=== PATIENT | female | born 1965 | race Caucasian/White ===

== ENCOUNTER → 2016-02-11 | Outpatient (CLI) | payer BC, OTHER ==
[~2016-02-11] VITALS: Ht 165.1 cm; Wt 86.2 kg
[~2016-02-11] MED LIST: ALLEGRA30 MG PO; COZAAR100 MG PO; DOXYCYCLINE 10100 M1 PO; HYDROCHLOROTH12.5 M1 PO; HYDROCODONE-AP1 EA11 PO; HYZAAR 100-12.1 EACH PO; IBUPROFEN 200200 M1 PO; LOESTRIN 24 FE1 EACH PO; MICROGESTIN FE1 EACH PO; MOBIC15 MG PO; PERCOCET 5-3251 EACH PO; PROVIGIL 200 M200 M1 PO; ZOLOFT50 MG PO; [UNRECOGNIZED DRUG - OTHER] PO
--- NOTE | ~2016-02-11 | HPC ---
[facility] [place] [address] PAIN MANAGEMENT CONSULTATION Name: COCOTRAVIS Hooker Room #: REG JERALD Maria#: [id number] Admission: 02/11/16 Attend Phys: Zeyad Hannah DO Discharge: Date of : 67 Report #: [id number] THIS REPORT FOR: //name// CC: Alfa Hannah The patient is a very pleasant 51-year-old female being seen for symptomatic lumbar radiculopathy. She had a midline lumbar epidural injection L4-L5 with nominal improvement of symptoms at last visit (01/21/2016). We ordered MRI of the lumbar spine and talked about proceeding with a transforaminal epidural injection. Returns to pain clinic today noting pain continues in the left posterior thigh and leg, exacerbated with standing and walking, worse with neural tensioning on the left side. MRI from 02/03/2016 was reviewed, noting at L5-S1, mild bulging with marked facet degenerative changes, ligamentum flavum hypertrophy. There is some abnormal signal seen in the left lateral recess along the inferior L5-S1 (left) facet adjacent to the origin of the left S1 nerve root. The exact etiology is somewhat obscure, though note is made that it could be an extruded disk fragment measuring up to 1 cm transversely or a complex synovial cyst and/or even a bony spur. Process deforms the left thecal sac with the central canal narrowed to 1 cm. This corresponds to left L5 radicular pain. Subjective pain score 3/10 are present, worse with standing, walking, and bending. She notes pain does significantly interfere with function and she has attenuated her daily activities. PHYSICAL EXAMINATION: Shows 51-year-old female, BMI is 31.6 kilograms per meter squared. Blood pressure 134/79, pulse 82, respirations 16. Rises from chair using armrest, modestly antalgic gait. Grossly positive straight leg raise on the left with decreased plantar flexion strength. Left Achilles reflex is diminished compared to the right. ASSESSMENT: Symptomatic lumbar radiculopathy. RECOMMENDATIONS: 1. We will seek authorization for left L5-S1 transforaminal epidural injection at next visit. 2. We will refer to Dr. Naif Olea for consideration for definitive intervention if interventional therapy does not afford improved relief. 3. Continue nonsteroidal anti-inflammatory medication (Meloxicam 15 mg) one a day. <ELECTRONICALLY SIGNED> By: Zeyad Hannah DO 02/17/16 1031 [id number] Zeyad Hannah DO /nt
[2016-02-11 14:48] VITALS: BP 134/79
== END ==
LOC: PAIN 07:34
DX: M54.16 Radiculopathy, lumbar region (principal); I10 Essential (primary) hypertension

== ENCOUNTER → 2020-02-21 | Outpatient (CLI) | payer OTHER | LOC: CAT 10:15 | PROVIDERS: ATTEND Orthopaedic Surgery Foot and Ankle Surgery | DX: M19.071 Primary osteoarthritis, right ankle and foot (principal) ==

== ENCOUNTER → 2020-03-10 | Outpatient (CLI) | payer OTHER ==
[~2020-03-10] MED LIST changes: +ALLEGRA ALLERGY60 MG PO; +BACTRIM DS TAB1 EACH PO; +DOXYCYCLINE 10100 M2 PO; +LARIN FE 1.5-31 EACH PO
== END ==
LOC: LAB 08:04
PROVIDERS: ATTEND Orthopaedic Surgery Foot and Ankle Surgery
DX: Z01.812 Encounter for preprocedural laboratory examination (principal); Z20.822 Contact with and (suspected) exposure to COVID-19

== ENCOUNTER 2020-03-13 06:04 | Day surgery (SDC) | payer OTHER ==
[~2020-03-13] VITALS: Ht 165.1 cm; Wt 86.6 kg
[2020-03-13 07:18] VITALS: BP 167/91
[2020-03-13] MEDS ORDERED: PERCOCET 7.5-31 EAC1 PO (09:09)
[2020-03-13] MEDS ORDERED: ECOTRIN325 MG PO (09:10)
[2020-03-13 09:29] VITALS: BP 167/91
--- NOTE | 2020-03-16 12:09 | O ---
[facility] [place] [address] OPERATIVE REPORT Name: TRAVIS SEPULVEDA Room #: DEP [facility]..#: [id number] Admission: 03/13/20 Attend Phys: Sanchez Juarez MD Discharge: 03/13/20 Date of : 67 Report #: [id number] THIS REPORT FOR: cc: Bishop Pike MD, Neal A. MD Kneidel,Sanchez Mayer MD ~ DATE OF SERVICE: 03/13/2020 PREOPERATIVE DIAGNOSES: 1. Right subtalar arthritis. 2. Right foot retained hardware. POSTOPERATIVE DIAGNOSES: 1. Right subtalar arthritis. 2. Right foot retained hardware. PROCEDURES: 1. Right foot hardware removal. 2. Right foot subtalar arthrodesis. SURGEON: Dr. Sanchez Juarez. RESEARCH TECHNICIAN: None. ANESTHESIA: General. ESTIMATED BLOOD LOSS: Minimal. DRAINS: No drains. TOURNIQUET TIME: 60 minutes. DESCRIPTION OF PROCEDURE: The patient brought to the operating room where she was placed under general anesthesia. Once under adequate general anesthesia, she was placed into a lateral decubitus position on the operative table. The patient's right lower extremity was then prepped and draped in sterile manner. The extremity was elevated, exsanguinated, tourniquet placed 300 mmHg. A lateral incision in the sinus tarsi was then made, dissection down to the joint capsule and extensor digitorum brevis. This was elevated exposing the subtalar joint. Exposure was then made on the lateral calcaneus of the lateral calcaneal plate. All of the screws were then removed from the plate including three requiring separate stab incisions to remove utilizing fluoroscopy for guidance. Once each of these screws were removed, attempts were made to remove the two subchondral screws the screws; however, was stripped and had to be left in. Therefore, we proceeded with the subtalar fusion portion of the case utilizing [facility] [address] [place] [address] OPERATIVE REPORT Name: TRAVIS SEPULVEDA GARRY Cole Room #: [place] [facility] [place]#: [id number] Admission: 03/13/20 Attend Phys: Sanchez Juarez MD Discharge: 03/13/20 Date of : 67 Report #: [id number] curettes, osteotomes and a rongeur. The subtalar joint was prepared to good bleeding subchondral bone. Signafuse allograft was then placed in the subtalar joint and subsequent fixation across the joint was achieved through a small dorsal incision with 2 guidewires placed under fluoroscopic guidance for the 7.3 mm cannulated screws. These were then drilled for and subsequently 2.3 mm cannulated screws were placed. Excellent fixation across the subtalar joint was achieved as verified under fluoroscopy. The wounds were then irrigated copiously and closed with 2-0 Vicryl in the deep and subcutaneous tissues and aneesh were used for the skin. The wounds were dressed with Xeroform, 4 x 4s, and sterile soft compressive dressing was placed. Tourniquet was let down at approximately 1 hour. Toes were pink and warm with good capillary refill. There were no complications from the procedure. The patient tolerated the procedure well and went to recovery room without incident. <ELECTRONICALLY SIGNED> By: Sanchez Juarez MD 03/16/20 1209 [id number] 1211 Sanchez Juarez MD /nt
== END 2020-03-13 11:00 | disposition home or self-care (01) ==
LOC: OR 06:04 → TBA 06:04 → OR 08:04
PROVIDERS: ATTEND Orthopaedic Surgery Foot and Ankle Surgery
DX: M19.071 Primary osteoarthritis, right ankle and foot (principal); Z47.2 Encounter for removal of internal fixation device; I10 Essential (primary) hypertension; M19.90 Unspecified osteoarthritis, unspecified site; Z98.890 Other specified postprocedural states; Z79.899 Other long term (current) drug therapy; Z96.652 Presence of left artificial knee joint; Z90.49 Acquired absence of other specified parts of digestive tract; Z87.442 Personal history of urinary calculi; Z79.82 Long term (current) use of aspirin
CPT/HCPCS: 50010; 50101; 50386; 50951; 51412; 51740; 53341; 53400; 56524; 57091; 57180; 57213; 62110; 62900; 70005

== ENCOUNTER → 2020-11-18 | Outpatient (CLI) | payer OTHER ==
[~2020-11-18] MED LIST changes: +ECOTRIN325 MG PO; +PERCOCET 7.5-31 EAC1 PO
== END ==
LOC: MRI 08:01
PROVIDERS: ATTEND Orthopaedic Surgery Foot and Ankle Surgery
DX: M19.071 Primary osteoarthritis, right ankle and foot (principal); M25.471 Effusion, right ankle; M25.561 Pain in right knee

== ENCOUNTER → 2020-12-29 | Outpatient (CLI) | payer OTHER | LOC: RAD 09:46 | PROVIDERS: ATTEND Obstetrics & Gynecology | DX: Z12.31 Encounter for screening mammogram for malignant neoplasm of breast (principal); N64.89 Other specified disorders of breast ==

== ENCOUNTER → 2021-01-12 | Outpatient (CLI) | payer OTHER ==
[2021-01-14 01:06] LABS: TESTOSTERONE* < 3 ng/dL (4-50)
== END ==
LOC: LAB 11:16
PROVIDERS: ATTEND Obstetrics & Gynecology
DX: R68.82 Decreased libido (principal); N95.1 Menopausal and female climacteric states